=== PATIENT | female | born 2000 | race Caucasian/White ===

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

== ENCOUNTER 2019-04-19 03:26 | Emergency (ER) | payer BC | END 2019-04-19 05:56 | disposition home or self-care (01) | LOC: FTE 05:56 | DX: R07.9 Chest pain, unspecified (principal); F41.9 Anxiety disorder, unspecified | CPT/HCPCS: 93005; 99283-25 ==